=== PATIENT | male | born 1970 | race Caucasian/White ===

== ENCOUNTER 2021-04-17 22:33 | Observation (INO) | payer OTHER ==
[~2021-04-17] VITALS: Ht 172.7 cm; Wt 81.6 kg
[~2021-04-17 22:33] MED LIST: NEURONTIN400 MG PO; PERCOCET 10-321 EACH PO; PRILOSEC OTC20 MG PO; SUBOXONE 8 MG-1 EACH SL; TYLENOL 325MG325 MG PO; VIBRAMYCIN100 MG PO
[2021-04-17 23:52] LABS: HEMOGLOBIN 14.1 gm/dl (14.0-17.5); RED BLOOD COUNT 4.78 M/UL (4.20-5.50); WHITE BLOOD COUNT 12.6 K/UL (4.5-11.0)
[2021-04-18 00:15] LABS: BUN/CREATININE RATIO 17 (0-10)
[2021-04-18 16:51] LABS: RED BLOOD COUNT 5.05 M/UL (4.20-5.50); WHITE BLOOD COUNT 10.7 K/UL (4.5-11.0)
[2021-04-19 02:00] LABS: HEMOGLOBIN 14.8 gm/dl (14.0-17.5); RED BLOOD COUNT 5.02 M/UL (4.20-5.50); WHITE BLOOD COUNT 11.6 K/UL (4.5-11.0)
[2021-04-19 02:30] LABS: BUN/CREATININE RATIO 11 (0-10)
[2021-04-19] MEDS ORDERED: LISINOPRIL10 MG PO (09:58)
[2021-04-19] MEDS ORDERED: ASPIRIN81 MG PO (09:58)
[2021-04-19] MEDS ORDERED: ATORVASTATIN CA20 MG PO (09:58)
--- NOTE | 2021-04-19 10:23 | NUR ---
report given to stacie david admitting nurse at [facility]. [id number]
== END 2021-04-19 23:40 | disposition short-term general hospital (02) ==
LOC: ER1 22:33 → CDU 04-18 05:48 → M/S 04-18 05:48
PROVIDERS: Internal Medicine; Physician Assistant Medical; ADMIT Internal Medicine
DX: I73.9 Peripheral vascular disease, unspecified (principal); Z20.822 Contact with and (suspected) exposure to COVID-19; I74.10 Embolism and thrombosis of unspecified parts of aorta; I74.5 Embolism and thrombosis of iliac artery; F17.210 Nicotine dependence, cigarettes, uncomplicated; M54.9 Dorsalgia, unspecified; I10 Essential (primary) hypertension; Z91.19 Patient's noncompliance with other medical treatment and regimen
CPT/HCPCS: 36415; 72129; 72132; 73630; 73700; 80048; 80053; 80061; 80202; 81001; 82550; 83605; 85025; 85610; 85652; 85730; 86140; 87040; 93926; 96372; 96374; 96375; 96376; 99284; G0378; J1335; J1644; J2270; J2543; J3370; J7070; Q9967; U0002

== ENCOUNTER 2021-05-22 06:40 | Emergency (ER) | payer OTHER ==
[~2021-05-22] VITALS: Ht 177.8 cm; Wt 68.0 kg
[~2021-05-22 06:40] MED LIST changes: +ASPIRIN81 MG PO; +ATORVASTATIN CA20 MG PO; +LISINOPRIL10 MG PO
[2021-05-22 07:50] LABS: HEMOGLOBIN 13.5 gm/dl (14.0-17.5); RED BLOOD COUNT 4.73 M/UL (4.20-5.50); WHITE BLOOD COUNT 16.7 K/UL (4.5-11.0)
[2021-05-22 08:31] LABS: BUN/CREATININE RATIO 10 (0-10)
== END 2021-05-22 09:45 | disposition other institution (70) ==
LOC: ER1 06:40
PROVIDERS: Family Medicine
DX: I70.323 Atherosclerosis of unspecified type of bypass graft(s) of the extremities with rest pain, bilateral legs (principal); I70.92 Chronic total occlusion of artery of the extremities; Z20.822 Contact with and (suspected) exposure to COVID-19; I11.9 Hypertensive heart disease without heart failure; F17.200 Nicotine dependence, unspecified, uncomplicated
CPT/HCPCS: 75635; 80053; 82550; 82553; 84484; 85025; 85610; 85730; 93005; 96374; 99285; J1644; Q9967; U0002

== ENCOUNTER 2021-06-09 17:55 | Emergency (ER) | payer OTHER ==
[2021-06-09 18:23] LABS: HEMOGLOBIN 10.8 gm/dl (14.0-17.5); RED BLOOD COUNT 3.73 M/UL (4.20-5.50); WHITE BLOOD COUNT 8.1 K/UL (4.5-11.0)
[2021-06-09 18:47] LABS: BUN/CREATININE RATIO 20 (0-10)
== END 2021-06-10 00:45 | disposition home or self-care (01) ==
LOC: ER1 17:55
PROVIDERS: Student in an Organized Health Care Education/Training Program
DX: I95.89 Other hypotension (principal); E11.51 Type 2 diabetes mellitus with diabetic peripheral angiopathy without gangrene; I10 Essential (primary) hypertension; F17.210 Nicotine dependence, cigarettes, uncomplicated; J44.9 Chronic obstructive pulmonary disease, unspecified
CPT/HCPCS: 71045; 80053; 82550; 82553; 84484; 85025; 85610; 85730; 93005; 99284; J7030